=== PATIENT | male | born 1985 | race Caucasian/White ===

== ENCOUNTER 2017-03-05 09:56 | Emergency (ER) | payer SELFPAY ==
[~2017-03-05] VITALS: Ht 185.4 cm; Wt 79.4 kg
--- NOTE | 2017-03-05 10:03 | NUR ---
PATIENT TO ED DT NAUSEA AND VOMITTING SINCE LAST NIGHT. PT IS AFEBRILE. VSS
[2017-03-05] MEDS ORDERED: DICYCLOMINE HCL INJ 20 MG/2 ML AMPUL IM ONE ×2 (10:13→10:30)
[2017-03-05] MEDS ORDERED: ONDANSETRON HCL/PF 4 MG/2 ML VIAL ONE (10:13)
[2017-03-05] MEDS ORDERED: KETOROLAC TROMETHAMINE 15 MG/ML VIAL ONE (10:13)
[2017-03-05] MEDS ORDERED: IV NS 0.9% 500 ML BAG IV ONE (10:30)
[2017-03-05] MEDS ORDERED: ONDANSETRON HCL/PF 4 MG/2 ML VIAL IV ONE (10:30)
[2017-03-05] MEDS ORDERED: KETOROLAC TROMETHAMINE INJ 30 MG/ML VIAL IV ONE (10:30)
[2017-03-05 10:57] VITALS: BP 120/70
--- NOTE | 2017-03-05 10:57 | NUR ---
IV removed. Catheter intact and site benign. Pressure and 4x4 applied to site. No bleeding noted.Patient discharged to home in stable condition. Written and verbal after care instructions given. Patient verbalizes understanding of instruction.
== END 2017-03-05 10:57 | disposition home or self-care (01) ==
LOC: ER 09:58
DX: A08.4 Viral intestinal infection, unspecified (principal); J45.909 Unspecified asthma, uncomplicated
CPT/HCPCS: 96372; 96374; 96375; 99284; A4606; J0500; J1885; J2405; J7040; Z7610